=== PATIENT | male | born 1975 | race Caucasian/White ===

== ENCOUNTER 2018-02-17 01:52 | Observation (INO) | payer OTHER, SELFPAY ==
[2018-02-17 02:14] LABS: #Basophils 0.1 thou/uL (0.0-0.2); #Eosinphils 0.3 thou/uL (0.0-0.7); #Lymphocytes 2.7 thou/uL (1.20-3.40); #Monocytes 0.6 thou/uL (0.11-0.59); #Neutrophils 3.9 thou/uL (1.40-6.50); %Basophils 0.9 % (0.0-1.0); %Eosinophils 4.1 % (0.0-10.0); %Lymphocytes 35.3 % (21.0-51.0); %Monocytes 8.1 % (0.0-10.0); %Neutrophils 51.6 % (42.0-75.0); Hemoglobin 17.2 g/dL (14.0-18.0); Mean Corpuscular HGB CONC 34.3 g/dL (32.0-36.0); Mean Corpuscular Hemoglobin 31.6 pg (27.0-31.0); Mean Corpuscular Volume 92.2 fl (80.0-94.0); Mean Platelet Volume 8.2 fL (7.4-10.4); Platelet Count 164 thou/uL (130-400); Red Blood Cell (RBC) Count 5.43 mill/uL (4.70-6.10); White Blood Cell (WBC) Count 7.6 thou/uL (4.8-10.8)
[2018-02-17 02:29] LABS: ALT (SGPT) 21 U/L (8-55); AST (SGOT) 31 U/L (5-34); Acetaminophen Less than 6.0 mcg/mL (10.0-30.0); Albumin 4.4 g/dL (3.5-5.0); Alcohol 305 mg/dL (Less than 10); Alkaline Phosphatase 94 U/L (40-150); Anion Gap 13 mmol/L (10-20); BUN (Urea Nitrogen) 14 mg/dL (8.9-20.6); Bilirubin, Total 0.4 mg/dL (0.2-1.2); Calc. Creatinine Clearance 0 mL/min (70-130); Calcium 8.8 mg/dL (7.8-10.44); Carbon Dioxide 26 mmol/L (22-29); Chloride 107 mmol/L (98-107); Estimated GFR-MDRD 88; Globulin 3.1 g/dL (2.4-3.5); Glucose 100 mg/dL (70-105); Potassium 4.2 mmol/L (3.5-5.1); Protein, Total 7.5 g/dL (6.0-8.3); Salicylate Less than 8.0 mg/dL (15.0-30.0); Sodium 142 mmol/L (136-145)
[2018-02-17 03:46] LABS: Amphetamine Not Detected (NotDetected); Barbiturates Screen Not Detected (NotDetected); Benzodiazepine Screen Not Detected (NotDetected); Cocaine Metabolite Screen Not Detected (NotDetected); Medtox Control Line Valid? VALID (VALID); Medtox Reader # READER 4; Methadone Not Detected (NotDetected); Methamphetamine Not Detected (NotDetected); Opiate Screen Not Detected (NotDetected); Oxycodone Screen Not Detected (NotDetected); Phencyclidine (PCP) Not Detected (NotDetected); THC/Cannabinoid Screen Not Detected (NotDetected); Tricyclic Screen Not Detected (NotDetected)
[2018-02-17] MEDS ORDERED: Acetaminophen 500 MG TAB PO PRN (07:59)
[2018-02-17] MEDS ORDERED: Ibuprofen 800 MG TAB PO PRN (07:59)
[2018-02-17] MEDS ORDERED: Dextrose 50% Abboject 50 ML SYRINGE SLOW IVP PRN (08:04)
[2018-02-17] MEDS ORDERED: Dextrose 5% in Water 1,000 ML IV PRN (08:04)
[2018-02-17] MEDS ORDERED: Ondansetron ODT 4 MG TAB PO PRN (08:11)
[2018-02-17] MEDS ORDERED: Ondansetron HCl/PF 4 MG/2 ML Vial IVP PRN (08:11)
--- NOTE | 2018-02-17 08:46 | RAD ---
PORTABLE CHEST: DATE: 02/17/18. PROVIDED CLINICAL HISTORY: Trauma. FINDINGS: Cardiac and mediastinal silhouette are within normal limits. No focal consolidation evident. The ca lcified granulomata are seen. The supine nature of the examination is not sensitive for detection of pleural fluid or pneumothorax. The bony thorax appears grossly intact. IMPRESSION: No evidence for an acute cardiopulmonary process. Please correlate with the subsequently performed C T examination. POS: [facility]
[2018-02-17] MEDS ORDERED: Nicotine 21 MG PATCH TD SCH (09:00)
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
[2018-02-17 10:31] VITALS: BMI 23.7
[2018-02-17] MEDS ORDERED: buPROPion HCl 100 MG TAB PO SCH (11:45)
[2018-02-17 11:48] VITALS: TEMP 98.1
[2018-02-17] MEDS: Sodium Chloride 0.9% 1,000 ML IV SCH ×2 (12:09→17:55)
[2018-02-17] MEDS ORDERED: ISOVUE-370 76%-LOCM 1 ML ONE (15:28)
[2018-02-17 16:46] VITALS: BP 122/74
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
--- NOTE | 2018-02-17 19:51 | PDOC.EVN ---
Event Note - Event Note Event Note: Dr Jeffery saw and evaluated the patient at approximately 1100 hrs 02/17/18. Assessment and plan discussed. Pt will be reevaluated this afternoon with plans for likely discharge once evaluated and cleared by
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
[2018-02-18] MEDS ORDERED: buPROPion HCl 100 MG TAB PO SCH (09:00)
== END 2018-02-17 17:55 | disposition home or self-care (01) ==
LOC: ERS 01:52 → SURG A 09:54
PROVIDERS: ADMIT Surgery; ATTEND Surgery
DX: Z04.1 Encounter for examination and observation following transport accident (principal); F10.129 Alcohol abuse with intoxication, unspecified; F14.10 Cocaine abuse, uncomplicated; F41.9 Anxiety disorder, unspecified; F32.9 Major depressive disorder, single episode, unspecified; R45.851 Suicidal ideations; Z79.899 Other long term (current) drug therapy
CPT/HCPCS: 36415; 70450; 71045; 71260; 72125; 74177; 80053; 80306; 80307; 84443; 85025; 86850; 86900; 86901; 96360; 96361; G0378; G0390

== ENCOUNTER 2018-08-12 16:56 | Inpatient (IN) | payer OTHER, SELFPAY ==
[2018-08-12] MEDS ORDERED: Lorazepam 2 MG/ML VIAL ONE (18:02)
[2018-08-12 18:03] LABS: #Lymphocytes 1.5 thou/uL (1.20-3.40); #Monocytes 0.3 thou/uL (0.11-0.59); #Neutrophils 4.2 thou/uL (1.40-6.50); %Basophils 0.6 % (0.0-1.0); %Eosinophils 0.4 % (0.0-10.0); %Lymphocytes 24.2 % (21.0-51.0); %Monocytes 4.2 % (0.0-10.0); %Neutrophils 70.5 % (42.0-75.0); Hemoglobin 18.6 g/dL (14.0-18.0); Mean Corpuscular HGB CONC 33.8 g/dL (32.0-36.0); Mean Corpuscular Hemoglobin 32.1 pg (27.0-31.0); Mean Platelet Volume 7.8 fL (7.4-10.4); Platelet Count 217 thou/uL (130-400); RBC Distribution Width 12.5 % (11.5-14.5); Red Blood Cell (RBC) Count 5.79 mill/uL (4.70-6.10)
[2018-08-12 18:27] LABS: ALT (SGPT) 32 U/L (8-55); AST (SGOT) 37 U/L (5-34); Albumin 4.5 g/dL (3.5-5.0); Alkaline Phosphatase 94 U/L (40-150); Anion Gap 19 mmol/L (10-20); BUN (Urea Nitrogen) 11 mg/dL (8.9-20.6); Bilirubin, Total 0.6 mg/dL (0.2-1.2); CK (CPK) 194 U/L (30-200); Calc. Creatinine Clearance 0 mL/min (70-130); Carbon Dioxide 23 mmol/L (22-29); Chloride 100 mmol/L (98-107); Estimated GFR-MDRD Greater than 90; Glucose 81 mg/dL (70-105); Potassium 3.8 mmol/L (3.5-5.1); Protein, Total 7.5 g/dL (6.0-8.3); Sodium 138 mmol/L (136-145)
[2018-08-12 18:28] LABS: Acetaminophen Less than 6.0 mcg/mL (10.0-30.0); Alcohol 174 mg/dL (Less than 10); Salicylate Less than 8.0 mg/dL (15.0-30.0)
[2018-08-12] MEDS ORDERED: Multivitamins, Adult 10 ML, Thiamine HCl 100 MG, Folic Acid 1 MG in Dextrose 5 %-0.45 %... IV SCH (19:15)
[2018-08-12 19:40] LABS: Bilirubin Negative (Negative); Blood, Urine Negative (Negative); Clarity CLEAR (Clear); Glucose, Urine (Dipstick) Negative (Negative); Leukocyte Trace (Negative); Nitrite Negative (Negative); Protein, Urine (Dipstick) Negative (Neg-Trace); pH, Urine 6.5 (5.0-9.0)
[2018-08-12 19:43] LABS: Bacteria/HPF None Seen HPF (None Seen); Hyaline Casts/LPF 0-3 HYALINE CAST LPF (0-3 Hyaline); RBC/HPF 0-3 HPF (0-3); Squamous Epithelial None Seen HPF (0-3); WBC/HPF 0-3 HPF (0-3)
[2018-08-12 19:50] LABS: Amphetamine Not Detected (NotDetected); Cocaine Metabolite Screen Not Detected (NotDetected); Medtox Reader # READER 1; Methamphetamine Not Detected (NotDetected); Opiate Screen Not Detected (NotDetected); Phencyclidine (PCP) Not Detected (NotDetected); THC/Cannabinoid Screen Not Detected (NotDetected)
[2018-08-12 19:51] LABS: Barbiturates Screen Not Detected (NotDetected); Benzodiazepine Screen Not Detected (NotDetected); Medtox Control Line Valid? VALID (VALID); Methadone Not Detected (NotDetected); Oxycodone Screen Not Detected (NotDetected); Tricyclic Screen Not Detected (NotDetected)
[2018-08-12 22:57] VITALS: BMI 23.2
[2018-08-13] MEDS ORDERED: Diazepam 5 MG TAB PO SCH (02:30)
[2018-08-13] MEDS: Sodium Chloride 0.9% 1,000 ML IV SCH ×3 (04:44→20:10)
[2018-08-13] MEDS: Multivitamin W/ Minerals 1 TAB PO SCH (08:14)
[2018-08-13] MEDS: Folic Acid 1 MG TAB PO SCH (08:14)
--- NOTE | 2018-08-13 09:30 | HP ---
DATE OF ADMISSION: 08/13/2018 CHIEF COMPLAINT: Wanting to detox. HISTORY OF PRESENT ILLNESS: This is a 42-year-old gentleman with a history of depression and anxiety and alcohol and cocaine abuse, who presented to the emergency department yesterday after binging on alcohol for the past 5-6 days. The patient has a long history of alcohol and cocaine abuse. He last used cocaine about 2-1/2 weeks ago. He has had several episodes of trying to stop drinking in the p ast. Has been in inpatient and outpatient rehab in the past. Starting about 5 or 6 days ago, he sta rted drinking about 2 sips of a bottle of vodka daily. He denies any seizure. Denies any nausea or vomiting at this time. Denies chest pain. Of note, he stopped his antidepressants and antianxiety m edicines, because he felt like he was doing fine. He also met a girl, who was not going to that h tong felt like he did not need to go to AA either. All of these compounded to him going back to [employer] again last week. He states that he is feeling guilty now about it and wanting to quit drinking aga in and presented to the emergency department for evaluation. PAST MEDICAL HISTORY: States that he may have had a TIA in the past, after drug and alcohol use, his tory of depression and anxiety. MEDICATIONS: Include Zoloft and Wellbutrin, which he stopped both of them. PAST SURGICAL HISTORY: Dental surgery. PSYCHIATRIC HISTORY: Anxiety, depression, and alcoholism. SOCIAL HISTORY: Drinks alcohol daily at this point, binge drinker. History of cocaine abuse, but no t used in over 2 weeks. Positive smoking a pack per day. ALLERGIES: No known drug allergies. REVIEW OF SYSTEMS: As per the history of present illness. General: Denies any recent fevers, chill s, or recent illness. HEENT: Denies headache, visual or hearing changes. Cardiac: Denies chest pa in or shortness of breath. Pulmonary: Denies cough or hemoptysis. Gastrointestinal: No nausea at this time. No vomiting, poor p.o. intake. Genitourinary: No dysuria or hematuria. Neurologic: No seizures or syncope. Mild tremor. PHYSICAL EXAMINATION: VITAL SIGNS: Temperature 98.1, pulse of 86 and regular, respirations 12, blood pressure 98/58, pulse ox is 97%-98% on room air. GENERAL: He is awake and alert. Speech is clear. No signs of agitation. He does have a mild resti ng tremor of his hands. HEENT: Mucosa is moist. NECK: Supple. HEART: Regular rate and rhythm. LUNGS: Clear. ABDOMEN: Soft. EXTREMITIES: No edema. NEUROLOGIC: Cranial nerves II-XII are intact. Strength is 5/5 bilaterally. Sensation is intact frida aterally. LABORATORY DATA: Reviewed. Hemoglobin and hematocrit slightly elevated at 18.6 and 54.9, likely due to dehydration. Sodium 138, potassium 3.8, chloride 100, CO2 of 23, BUN and creatinine 11 and 0.83, serum glucose of 81. AST and ALT 37 and 32, alkaline phosphatase was normal at 94. TSH was normal. Albumin normal at 4.5, blood alcohol level yesterday was 174. ASSESSMENT AND PLAN: This is a 42-year-old gentleman with, 1. A history of drug and alcohol abuse, now wanting to detox after alcohol binge. No signs of delir ium tremens, mild tremor. Agree with admission and we will continue abstinence, monitoring for any s igns of withdrawal symptoms. We will continue Valium p.r.n. We will give Librium a low dose today d ue to his tremors and continue p.r.n. Valium. 2. Malnutrition. We will continue vitamins including multivitamin, thiamine, and folic acid. 3. Dehydration with polycythemia. I will continue IV fluids at this time. 4. History of depression and anxiety. We will restart his antidepressants and anxiety regimen. Con shreya [facility] for further evaluation. Hopefully, discharge home tomorrow.
[2018-08-13] MEDS: buPROPion HCl 100 MG TAB PO SCH (09:49)
[2018-08-13] MEDS: chlordiazePOXIDE HCl 5 MG CAP PO SCH ×3 (09:50→20:51)
[2018-08-13] MEDS: Diazepam 5 MG TAB PO PRN (20:50)
[2018-08-14] MEDS: Diazepam 5 MG TAB PO PRN (00:42)
[2018-08-14] MEDS ORDERED: Diazepam 5 MG TAB PO PRN (04:00)
[2018-08-14] MEDS ORDERED: Magnesium Oxide 400 MG TAB PO SCH (09:00)
[2018-08-14] MEDS: Folic Acid 1 MG TAB PO SCH (09:19)
[2018-08-14] MEDS: buPROPion HCl 100 MG TAB PO SCH (09:19)
[2018-08-14] MEDS: Multivitamin W/ Minerals 1 TAB PO SCH (09:20)
[2018-08-14] MEDS: chlordiazePOXIDE HCl 5 MG CAP PO SCH (11:34)
[2018-08-14 12:07] VITALS: BP 116/62; TEMP 97.7
--- NOTE | 2018-08-16 08:04 | DIS ---
ADMISSION DIAGNOSES: 1. Alcohol toxicity. 2. Alcohol abuse. 3. Cocaine abuse. 4. Depression, anxiety. 5. Mood disorder. 6. Noncompliance. DISCHARGE DIAGNOSES: Alcohol withdrawals, resolved. CONSULTATIONS: [facility]. PROCEDURES: None. HOSPITAL COURSE: This is a 42-year-old gentleman with a history of depression, anxiety, alcohol, and substance abuse who presented to the emergency department after bingeing on vodka for the past 5-6 d ays. He was found to have a toxic level of alcohol. He was admitted and started on abstinence daryl col. He had no signs of delirium tremens. He did have some tremors which improved with benzodiazepi ruth. He continued his wean off of the benzodiazepines and was stable for discharge on the day of dis charge. Prior to discharge, he was evaluated by [facility] due to his statements of suicidality while he w as intoxicated. Once he was sober he denied any suicidality. He admitted to stopping his antidepres sants and those were restarted during his hospitalization. He did not have a need for inpatient psyc hiatric management. Arrangements were made for outpatient care and he was discharged home in good co ndition. DISCHARGE PHYSICAL EXAMINATION: VITAL SIGNS: Stable. He is not tachycardic. GENERAL: He is awake and alert, in no acute distress. No tremor. HEART: Regular rate and rhythm. ABDOMEN: Clear. NEUROLOGIC: Cranial nerves II-XII are intact. Sensation is intact. No seizure activity. LABORATORY DATA: Reviewed. DISCHARGE MEDICATIONS: Librium 5 mg b.i.d. p.r.n. agitation, Wellbutrin 100 mg daily, folic acid job ly, mag oxide daily, multivitamin 1 daily, sertraline 100 mg daily, thiamine 100 mg daily. FOLLOWUP INSTRUCTIONS: The patient to follow up in my office in 1-2 weeks. He is to continue his ou tpatient counseling as well as AA. He is encouraged not to drink or use cocaine in the future.
== END 2018-08-14 12:11 | disposition home or self-care (01) | DRG 897 ==
LOC: ERS 16:56 → ERHOLD 19:07 → 2SE 22:10 → ONC 08-13 10:07
PROVIDERS: ADMIT Family Medicine; ATTEND Family Medicine
PROC: HZ2ZZZZ Detoxification Services for Substance Abuse Treatment (ICD-10-PCS; principal; 2018-08-12)
DX: F10.239 Alcohol dependence with withdrawal, unspecified (principal); E46 Unspecified protein-calorie malnutrition; F14.10 Cocaine abuse, uncomplicated; Y90.6 Blood alcohol level of 120-199 mg/100 ml; F32.9 Major depressive disorder, single episode, unspecified; F41.9 Anxiety disorder, unspecified; Z68.23 Body mass index [BMI] 23.0-23.9, adult; E86.0 Dehydration; D75.1 Secondary polycythemia
CPT/HCPCS: 36415; 80053; 80306; 80307; 81003; 81015; 82550; 84443; 85025; 96361; 96365; 96366; 96375; J2060; J3411; J3475; J7042; J7050

== ENCOUNTER 2021-12-06 19:37 | Inpatient (IN) | payer SELFPAY ==
[2021-12-06 21:17] LABS: #Basophils 0.1 thou/uL (0.0-0.2); #Eosinphils 0.1 thou/uL (0.0-0.7); #Lymphocytes 1.7 thou/uL (1.20-3.40); #Monocytes 0.3 thou/uL (0.11-0.59); #Neutrophils 4.4 thou/uL (1.40-6.50); %Basophils 0.9 % (0.0-1.0); %Eosinophils 0.9 % (0.0-10.0); %Lymphocytes 25.8 % (21.0-51.0); %Neutrophils 67.4 % (42.0-75.0); Hemoglobin 19.3 g/dL (14.0-18.0); Mean Corpuscular HGB CONC 35.1 g/dL (32.0-36.0); Mean Corpuscular Hemoglobin 33.3 pg (27.0-31.0); Mean Corpuscular Volume 94.9 fL (78.0-98.0); Platelet Count 248 thou/uL (130-400); RBC Distribution Width 12.5 % (11.5-14.5); White Blood Cell (WBC) Count 6.6 thou/uL (4.8-10.8)
[2021-12-06] MEDS ORDERED: Lorazepam 2 MG/ML VIAL ONE ×2 (21:24→23:11)
[2021-12-06] MEDS ORDERED: chlordiazePOXIDE HCl 25 MG CAP PO SCH (21:30)
[2021-12-06 21:31] LABS: ALT (SGPT) 26 U/L (8-55); AST (SGOT) 30 U/L (5-34); Albumin 4.3 g/dL (3.5-5.0); Alkaline Phosphatase 135 U/L (40-110); Anion Gap 15 mmol/L (10-20); BUN (Urea Nitrogen) 9 mg/dL (8.9-20.6); Bilirubin, Total 0.5 mg/dL (0.2-1.2); Calc. Creatinine Clearance 0 mL/min (70-130); Calcium 9.3 mg/dL (7.8-10.44); Carbon Dioxide 30 mmol/L (22-29); Chloride 100 mmol/L (98-107); Globulin 3.3 g/dL (2.4-3.5); Glucose 110 mg/dL (70-105); Potassium 3.6 mmol/L (3.5-5.1); Protein, Total 7.6 g/dL (6.0-8.3)
[2021-12-06 22:34] LABS: SARS-CoV-2 NAA Rapid Test DETECTED (NotDetected)
[2021-12-06 22:40] LABS: Sodium 142 mmol/L (136-145)
[2021-12-06] MEDS ORDERED: HYDROcodone/Acetaminophen 7.5/325 mg Tablet PO PRN (23:14)
[2021-12-06] MEDS ORDERED: Guaifenesin DM 100-10/5 ML UDCUP PO PRN (23:14)
[2021-12-06] MEDS ORDERED: Lorazepam 2 MG/ML VIAL SLOW IVP PRN (23:16)
[2021-12-06] MEDS ORDERED: Ondansetron ODT 4 MG TAB SL PRN (23:30)
[2021-12-06] MEDS ORDERED: Lorazepam 1 MG TAB PO SCH (23:30)
[2021-12-06] MEDS ORDERED: Acetaminophen 325 MG TAB PO PRN (23:30)
[2021-12-06] MEDS ORDERED: Ondansetron PF 4 MG/2 ML Vial IVP PRN (23:30)
[2021-12-06 23:57] LABS: CRP (Inflammatory) Less than 0.50 mg/dL (= or < 0.5); Magnesium 2.1 mg/dL (1.6-2.6); Phosphorus 2.1 mg/dL (2.3-4.7)
[2021-12-07] MEDS ORDERED: Lorazepam 1 MG TAB PO PRN
[2021-12-07 01:03] VITALS: BMI 22.5
[2021-12-07] MEDS: Multivitamins, Adult 10 ML, Folic Acid 1 MG in Dextrose 5 %-0.45 % NaCl 1,000 ML IV SCH ×2 (01:28→23:18)
[2021-12-07] MEDS: Sodium Chloride 0.9% 1,000 ML IV SCH ×2 (01:28→05:53)
[2021-12-07] MEDS: Nicotine 21 MG PATCH TD SCH ×2 (01:29→23:18)
[2021-12-07] MEDS ORDERED: Electrolyte Replacement Protocol 1 EACH FS PRN (02:00)
[2021-12-07] MEDS ORDERED: Lorazepam 2 MG/ML VIAL IM PRN (02:00)
[2021-12-07] MEDS ORDERED: Ondansetron ODT 4 MG TAB PO PRN (02:00)
[2021-12-07] MEDS: Lorazepam 1 MG TAB PO SCH ×4 (05:48→23:18)
[2021-12-07] MEDS: Lactated Ringer's 1,000 ML IV SCH ×2 (05:52→17:18)
[2021-12-07 06:37] LABS: #Basophils 0.1 thou/uL (0.0-0.2); #Eosinphils 0.1 thou/uL (0.0-0.7); #Lymphocytes 2.2 thou/uL (1.20-3.40); #Monocytes 0.5 thou/uL (0.11-0.59); #Neutrophils 7.1 thou/uL (1.40-6.50); %Basophils 0.6 % (0.0-1.0); %Eosinophils 1.1 % (0.0-10.0); %Lymphocytes 21.9 % (21.0-51.0); %Monocytes 4.6 % (0.0-10.0); %Neutrophils 71.9 % (42.0-75.0); Hemoglobin 15.4 g/dL (14.0-18.0); Mean Corpuscular HGB CONC 33.4 g/dL (32.0-36.0); Mean Corpuscular Volume 96.1 fL (78.0-98.0); Mean Platelet Volume 7.7 fL (7.4-10.4); Platelet Count 186 thou/uL (130-400); RBC Distribution Width 12.2 % (11.5-14.5); Red Blood Cell (RBC) Count 4.82 mill/uL (4.70-6.10); White Blood Cell (WBC) Count 9.9 thou/uL (4.8-10.8)
[2021-12-07 06:54] LABS: ALT (SGPT) 20 U/L (8-55); AST (SGOT) 21 U/L (5-34); Albumin 3.2 g/dL (3.5-5.0); Alkaline Phosphatase 101 U/L (40-110); Anion Gap 9 mmol/L (10-20); BUN (Urea Nitrogen) 8 mg/dL (8.9-20.6); Bilirubin, Total 0.7 mg/dL (0.2-1.2); Calc. Creatinine Clearance 138 mL/min (70-130); Carbon Dioxide 29 mmol/L (22-29); Chloride 102 mmol/L (98-107); Globulin 2.3 g/dL (2.4-3.5); Glucose 101 mg/dL (70-105); Potassium 3.1 mmol/L (3.5-5.1); Protein, Total 5.5 g/dL (6.0-8.3); Sodium 137 mmol/L (136-145)
[2021-12-07] MEDS ORDERED: Potassium Chloride 20 MEQ TAB PO SCH (07:00)
[2021-12-07] MEDS: Zinc Sulfate 220 MG CAP PO SCH (08:34)
[2021-12-07] MEDS: Famotidine 20 MG TAB PO SCH ×2 (08:34→20:50)
[2021-12-07] MEDS: Enoxaparin Sodium 40 MG/0.4 ML SYRINGE SC SCH (08:34)
[2021-12-07] MEDS: Folic Acid 1 MG TAB PO SCH (08:35)
[2021-12-07] MEDS: Multivit, Therapeutic 1 TAB PO SCH (08:35)
[2021-12-07] MEDS: Dexamethasone 1 MG TAB PO SCH ×2 (08:35→17:17)
[2021-12-07] MEDS ORDERED: Thiamine 100 MG TAB PO SCH (09:00)
[2021-12-07 11:06] LABS: Syphilis Antibody Nonreactive (Nonreactive)
[2021-12-07 15:39] LABS: Amphetamine Not Detected (NotDetected); Barbiturates Screen Not Detected (NotDetected); Benzodiazepine Screen Detected (NotDetected); Cocaine Metabolite Screen Not Detected (NotDetected); Methadone Not Detected (NotDetected); Methamphetamine Not Detected (NotDetected); Opiate Screen Not Detected (NotDetected); Oxycodone Screen Not Detected (NotDetected); Phencyclidine (PCP) Not Detected (NotDetected); THC/Cannabinoid Screen Not Detected (NotDetected); Tricyclic Screen Not Detected (NotDetected)
[2021-12-08] MEDS ORDERED: Lorazepam 1 MG TAB PO PRN (02:00)
[2021-12-08] MEDS ORDERED: Thiamine HCl 200 MG/2 ML VIAL SLOW IVP SCH (02:00)
[2021-12-08] MEDS: Lactated Ringer's 1,000 ML IV SCH ×2 (03:33→12:39)
[2021-12-08 03:36] VITALS: TEMP 97.5
[2021-12-08 05:12] LABS: #Lymphocytes 0.6 thou/uL (1.20-3.40); #Monocytes 0.1 thou/uL (0.11-0.59); #Neutrophils 6.6 thou/uL (1.40-6.50); %Basophils 0.3 % (0.0-1.0); %Eosinophils 0.1 % (0.0-10.0); %Lymphocytes 8.7 % (21.0-51.0); %Monocytes 1.8 % (0.0-10.0); %Neutrophils 89.1 % (42.0-75.0); Hemoglobin 15.5 g/dL (14.0-18.0); Mean Corpuscular HGB CONC 33.6 g/dL (32.0-36.0); Mean Corpuscular Hemoglobin 32.1 pg (27.0-31.0); Mean Corpuscular Volume 95.6 fL (78.0-98.0); Mean Platelet Volume 8.2 fL (7.4-10.4); Platelet Count 189 thou/uL (130-400); Red Blood Cell (RBC) Count 4.84 mill/uL (4.70-6.10); White Blood Cell (WBC) Count 7.4 thou/uL (4.8-10.8)
[2021-12-08 05:32] LABS: Anion Gap 9 mmol/L (10-20); BUN (Urea Nitrogen) 7 mg/dL (8.9-20.6); Calc. Creatinine Clearance 132 mL/min (70-130); Calcium 8.7 mg/dL (7.8-10.44); Carbon Dioxide 27 mmol/L (22-29); Chloride 104 mmol/L (98-107); Glucose 194 mg/dL (70-105); Magnesium 1.8 mg/dL (1.6-2.6); Potassium 3.9 mmol/L (3.5-5.1); Sodium 136 mmol/L (136-145)
[2021-12-08 05:34] LABS: Phosphorus 1.9 mg/dL (2.3-4.7)
[2021-12-08] MEDS: Lorazepam 1 MG TAB PO SCH ×2 (05:53→12:36)
[2021-12-08] MEDS ORDERED: Magnesium 2 GM/50 ML 2 GM in Premix Bag 1 BAG IVPB SCH (07:00)
[2021-12-08] MEDS: PHOS-NAK 1 PKT PACK PO SCH ×2 (07:05→11:25)
[2021-12-08] MEDS ORDERED: K-Phos Neutral 250 MG TAB PO SCH (08:15)
[2021-12-08 09:05] VITALS: BP 133/79
[2021-12-08] MEDS: Famotidine 20 MG TAB PO SCH (09:07)
[2021-12-08] MEDS: Folic Acid 1 MG TAB PO SCH (09:07)
[2021-12-08] MEDS: Zinc Sulfate 220 MG CAP PO SCH (09:07)
[2021-12-08] MEDS: Dexamethasone 1 MG TAB PO SCH (09:08)
[2021-12-08] MEDS: Multivit, Therapeutic 1 TAB PO SCH (09:08)
[2021-12-08] MEDS: Enoxaparin Sodium 40 MG/0.4 ML SYRINGE SC SCH (09:08)
[2021-12-09] MEDS ORDERED: Lorazepam 1 MG TAB PO PRN (02:00)
[2021-12-09] MEDS ORDERED: Lorazepam 0.5 MG TAB PO SCH (06:00)
[2021-12-10] MEDS ORDERED: Lorazepam 0.5 MG TAB PO PRN (06:00)
[2021-12-10] MEDS ORDERED: Thiamine 100 MG TAB PO SCH (09:00)
== END 2021-12-08 16:45 | disposition home or self-care (01) | DRG 896 ==
LOC: ERS 19:37 → 2SW 22:43 → OBSVTOIN 12-07 15:25
PROVIDERS: ADMIT Internal Medicine; ATTEND Internal Medicine
PROC: 8E0ZXY6 Isolation (ICD-10-PCS; principal; 2021-12-07)
DX: F10.131 Alcohol abuse with withdrawal delirium (principal); U07.1 COVID-19; F17.210 Nicotine dependence, cigarettes, uncomplicated; F41.9 Anxiety disorder, unspecified; E87.6 Hypokalemia; F32.A Depression, unspecified; E83.39 Other disorders of phosphorus metabolism; Z86.73 Personal history of transient ischemic attack (TIA), and cerebral infarction without residual deficits; Z79.899 Other long term (current) drug therapy
CPT/HCPCS: 36415; 71045; 80048; 80053; 80306; 82248; 83735; 84100; 84443; 85025; 86140; 86780; 93005; 96372; 96374; 96375; 96376; G0378; J1650; J2060; J3411; J3475; J7042; J7050; J7120; J8540; U0002

== ENCOUNTER 2021-12-22 14:24 | Emergency (ER) | payer SELFPAY ==
[2021-12-22 15:12] LABS: #Basophils 0.1 thou/uL (0.0-0.2); #Eosinphils 0.1 thou/uL (0.0-0.7); #Lymphocytes 2.5 thou/uL (1.20-3.40); #Monocytes 0.3 thou/uL (0.11-0.59); #Neutrophils 4.9 thou/uL (1.40-6.50); %Eosinophils 0.8 % (0.0-10.0); %Lymphocytes 31.8 % (21.0-51.0); %Monocytes 4.1 % (0.0-10.0); %Neutrophils 62.3 % (42.0-75.0); Hemoglobin 19.2 g/dL (14.0-18.0); Mean Corpuscular HGB CONC 33.4 g/dL (32.0-36.0); Mean Corpuscular Hemoglobin 32.1 pg (27.0-31.0); Mean Platelet Volume 7.6 fL (7.4-10.4); Platelet Count 247 thou/uL (130-400); White Blood Cell (WBC) Count 7.9 thou/uL (4.8-10.8)
[2021-12-22 15:31] LABS: Acetaminophen Less than 6.0 mcg/mL (10.0-30.0); Alcohol 353 mg/dL (Less than 10); Salicylate Less than 8.0 mg/dL (15.0-30.0)
[2021-12-22 15:32] LABS: ALT (SGPT) 30 U/L (8-55); AST (SGOT) 35 U/L (5-34); Albumin 4.2 g/dL (3.5-5.0); Alkaline Phosphatase 122 U/L (40-110); Anion Gap 16 mmol/L (10-20); BUN (Urea Nitrogen) 8 mg/dL (8.9-20.6); Bilirubin, Total 0.4 mg/dL (0.2-1.2); Calc. Creatinine Clearance 0 mL/min (70-130); Calcium 8.8 mg/dL (7.8-10.44); Carbon Dioxide 26 mmol/L (22-29); Chloride 104 mmol/L (98-107); Globulin 3.3 g/dL (2.4-3.5); Glucose 88 mg/dL (70-105); Potassium 4.1 mmol/L (3.5-5.1); Protein, Total 7.5 g/dL (6.0-8.3); Sodium 142 mmol/L (136-145)
[2021-12-22] MEDS ORDERED: Nicotine 14 MG PATCH ONE (17:10)
[2021-12-22 19:09] LABS: Bilirubin Negative (Negative); Blood, Urine Negative (Negative); Clarity Clear (Clear); Glucose, Urine (Dipstick) Normal (Negative); Ketone, Urine Negative (Negative); Leukocyte Negative Leu/uL (Negative); Nitrite Negative (Negative); Protein, Urine (Dipstick) Negative (Neg-Trace); Specific Gravity, Urine 1.013 (1.002-1.036); Urobilinogen Normal mg/dL (Less than 2); pH, Urine 6.5 (5.0-9.0)
[2021-12-22 19:18] LABS: Amphetamine Not Detected (NotDetected); Barbiturates Screen Not Detected (NotDetected); Benzodiazepine Screen Detected (NotDetected); Cocaine Metabolite Screen Not Detected (NotDetected); Methadone Not Detected (NotDetected); Methamphetamine Not Detected (NotDetected); Opiate Screen Not Detected (NotDetected); Oxycodone Screen Not Detected (NotDetected); Phencyclidine (PCP) Not Detected (NotDetected); THC/Cannabinoid Screen Not Detected (NotDetected); Tricyclic Screen Not Detected (NotDetected)
[2021-12-22] MEDS ORDERED: Folic Acid 1 MG, Multivitamins, Adult 10 ML in Dextrose 5 %-0.45 % NaCl 1,000 ML IV SCH (19:30)
[2021-12-22] MEDS ORDERED: Thiamine HCl 200 MG/2 ML VIAL SLOW IVP SCH (19:30)
[2021-12-22] MEDS ORDERED: PARoxetine 20 MG TAB PO SCH (20:45)
== END 2021-12-23 07:30 | disposition home or self-care (01) ==
LOC: ERS 14:24
DX: F10.129 Alcohol abuse with intoxication, unspecified (principal); R00.0 Tachycardia, unspecified; F17.210 Nicotine dependence, cigarettes, uncomplicated; Z86.73 Personal history of transient ischemic attack (TIA), and cerebral infarction without residual deficits; Z79.899 Other long term (current) drug therapy
CPT/HCPCS: 36415; 80053; 80306; 80307; 81003; 84443; 85025; 93005; 96365; 96366; J3411; J7042